=== PATIENT | male | born 1975 | race Caucasian/White ===

== ENCOUNTER 2017-11-29 19:44 | Emergency (ER) | payer SELFPAY ==
[2017-11-29] MEDS ORDERED: Sodium Chloride 0.9% 1,000 ML IV ONE ×2 (20:29)
[2017-11-29] MEDS ORDERED: Sucralfate 1 gm/10 ml Oral Susp UD PO STA (20:30)
--- NOTE | 2017-11-29 20:31 | C.PDOC ---
History Of Present Illness <Jairon Martin - Last Filed: 11/30/17 06:39> <Franca Chauhan - Last Filed: 11/30/17 10:50> 42 y/o male present to the ED complaining of abdominal pain and vomiting that began today. Also reports he stopped drinking today, after drinking alcohol for the past 3 days. Patient was seen at [facility] [place] earlier today with complaints of chest pain and was discharged home. Otherwise patient denies any diarrhea, fever , chills, chest pain, or SOB. (Jairon Martin) History Per: Patient History/Exam Limitations: no limitations Onset/Duration Of Symptoms: Hrs Current Symptoms Are (Timing): Still Present Associated Symptoms: Vomiting <Jairon Martin - Last Filed: 11/30/17 06:39> <GsiselFranca - Last Filed: 11/30/17 10:50> Time Seen by Provider: 11/29/17 20:22 Chief Complaint (Nursing): Abdominal Pain Past Medical History Reviewed: Historical Data, Nursing Documentation, Vital Signs - Medical History PMH: HTN (not sure) Denies: Chronic Kidney Disease Other Surgeries: Colonoscopy Family History: States: Unknown Family Hx - Social History Hx Tobacco Use: No Hx Alcohol Use: Yes Hx Substance Use: No (denies) - Immunization History Hx Tetanus Toxoid Vaccination: No Hx Influenza Vaccination: No Hx Pneumococcal Vaccination: No <Jairon Martin - Last Filed: 11/30/17 06:39> Vital Signs: Last Vital Signs Temp 98.5 F 11/30/17 05:57 Pulse 70 11/30/17 05:57 Resp 16 11/30/17 05:57 BP 135/86 11/30/17 05:57 Pulse Ox 98 11/30/17 06:45 - [facility] Procedures ALCOHOL DETOXIFICATION (04/13/14) Review Of Systems Except As Marked, All Systems Reviewed And Found Negative. Constitutional: Negative for: Fever, Chills Cardiovascular: Negative for: Chest Pain Respiratory: Negative for: Shortness of Breath Gastrointestinal: Positive for: Nausea, Vomiting, Abdominal Pain. Negative for : Diarrhea, Hematemesis <Jairon Martin - Last Filed: 11/30/17 06:39> Physical Exam - Physical Exam Appears: Non-toxic, In Acute Distress (appears to be in mild pain) Skin: Normal Color, Warm, Dry Head: Atraumatic, Normacephalic Eye(s): bilateral: Normal Inspection, PERRL, EOMI Oral Mucosa: Moist Neck: Normal ROM Chest: Symmetrical Cardiovascular: Rhythm Regular, No Murmur Respiratory: Normal Breath Sounds, No Rales, No Rhonchi, No Wheezing Gastrointestinal/Abdominal: Soft, Tenderness (to epigastric area), No Guarding, No Rebound, Other (Vomitus noted to be brown-yellowish color, no blood) Extremity: Bilateral: Atraumatic, Normal Color And Temperature, Normal ROM Neurological/Psych: Oriented x3, Normal Speech <Jairon Martin - Last Filed: 11/30/17 06:39> ED Course And Treatment - Laboratory Results Result Diagrams: 11/29/17 20:41 11/29/17 20:41 O2 Sat by Pulse Oximetry: 98 (RA) Pulse Ox Interpretation: Normal <Jairon Martin - Last Filed: 11/30/17 06:39> - Laboratory Results Result Diagrams: 11/29/17 20:41 11/29/17 20:41 <Franca Chauhan - Last Filed: 11/30/17 10:50> Medical Decision Making <Jairon Martin - Last Filed: 11/30/17 06:39> <Franac Chauhan - Last Filed: 11/30/17 10:50> Medical Decision Making: Impression: Abdominal pain, vomiting, possible withdrawal Initial Plan: --Alcohol serum --Lipase --CMP --CBC --PTT --Prothrombin time --Urinalysis --IV Fluids --4 mg Zofran IV --40 mg Protonix IV --1 gm Carafate PO (Jairon Martin) Disposition Counseled Patient/Family Regarding: Diagnosis - Disposition Disposition Time: 06:40 - POA Present On Arrival: None <Jairon Martin - Last Filed: 11/30/17 06:39> <Franca Chauhan - Last Filed: 11/30/17 10:50> - Disposition Referrals: [facility] [Outside] Disposition: HOME/ ROUTINE Condition: STABLE Prescriptions: Dicyclomine [Bentyl] 10 mg PO QID #30 cap Famotidine [Pepcid] 20 mg PO BID #30 tab Sucralfate [Carafate] 1 gm PO BID #20 tab Instructions: Gastritis (DC), Effects of Alcohol on Your Health, Ulcer and Gastritis Diet Forms: [facility] (Yoruba), Gen Discharge Inst Czech Print Language: LUXEMBOURGISH - Clinical Impression Clinical Impression: Abdominal pain, Alcoholic gastritis - Scribe Statement The provider has reviewed the documentation as recorded by the Scribe (Stacy Rowley) <Jairon Martin - Last Filed: 11/30/17 06:39> <Franca Chauhan - Last Filed: 11/30/17 10:50> - Scribe Statement Provider Attestation: All medical record entries made by the Scribe were at my direction and personally dictated by me. I have reviewed the chart and agree that the record accurately reflects my personal performance of the history, physical exam, medical decision making, and the department course for this patient. I have also personally directed, reviewed, and agree with the discharge instructions and disposition. (Jairon Martin) Addendum <Jairon Martin - Last Filed: 11/30/17 06:39> <Franca Chauhan - Last Filed: 11/30/17 10:50> Addendum: 11/30/17 10:46 Received phone call from Radiologist stating that is is disagree with Vrad reading of patient's abdominal CT and sts patient has pancolitis. Attempted to reach patient, phone number provided [phone] is not a valid number, called assembly person Kaley Gonzalez [phone], no answer, no voice mail was set up for this number. (Franca Chauhan)
[2017-11-29 20:45] LABS: BASO % 0.3 % (0.0-2.0); HEMOGLOBIN 16.2 g/dL (12.0-18.0); LYMPH # 0.8 K/uL (1.0-4.3); LYMPH % 20.1 % (20.0-40.0); MEAN CELL VOLUME 93.4 fL (80.0-94.0); MEAN CORPUSCULAR HEMOGLOBIN 33.2 pg (27.0-31.0); MEAN CORPUSCULAR HGB CONC 35.6 g/dL (33.0-37.0); MEAN PLATELET VOLUME 7.2 fL (7.2-11.7); MONO # 0.4 K/uL (0.0-0.8); MONO % 11.3 % (0.0-10.0); NEUT # 2.6 K/uL (1.8-7.0); NEUT % 68.3 % (50.0-75.0); NRBC % 0.1 % (0.0-2.0); RBC 4.87 Mil/uL (4.40-5.90); RED CELL DISTRIBUTION WIDTH 12.5 % (11.5-14.5); WHITE BLOOD COUNT 3.8 K/uL (4.8-10.8)
[2017-11-29 20:47] LABS: SQUAMOUS EPITHIAL < 1 /hpf (0-5); URINE BILIRUBIN NEGATIVE (NEGATIVE); URINE BLOOD NEGATIVE (NEGATIVE); URINE CLARITY Clear (Clear); URINE COLOR Yellow (YELLOW); URINE GLUCOSE (UA) NORMAL (Normal); URINE LEUKOCYTE ESTERASE NEG Leu/uL (Negative); URINE PROTEIN 2+ mg/dL (NEGATIVE); URINE UROBILINOGEN NORMAL mg/dL (0.2-1.0)
[2017-11-29 20:56] LABS: CALCIUM 8.5 mg/dl (8.6-10.4); GFR AFRICAN-AMERICAN > 60; GFR NON-AFRICAN AMERICAN > 60; LIPASE 65 U/L (23-300)
[2017-11-29 21:13] LABS: ALB/GLOB RATIO 1.1 (1.0-2.1); ALBUMIN 4.4 g/dL (3.5-5.0); ALT/SGPT 98 U/L (21-72); AST/SGOT 91 U/L (17-59); BLOOD UREA NITROGEN 11 mg/dL (9-20)
[2017-11-29 21:19] LABS: INR 1.2; PROTHROMBIN TIME 13.4 SECONDS (9.7-12.2)
[2017-11-29] MEDS ORDERED: Morphine 4 MG/ML VIAL ONE (23:18)
[2017-11-30] MEDS ORDERED: Iohexol 240 (50 ml) ONE (01:47)
[2017-11-30] MEDS ORDERED: Iohexol 240 (50 ml) PO ONE (01:50)
[2017-11-30] MEDS ORDERED: Iodixanol 320 MG/ML 100 ML BOTTLE IV ONE (03:14)
[2017-11-30 05:58] VITALS: BP 135/86; PULSE 70; RESP 16; TEMP 98.5
[2017-11-30 06:43] VITALS: O2SAT 98
--- NOTE | 2017-11-30 10:17 | CT ---
Date of service: 11/30/2017 PROCEDURE: CT Abdomen and Pelvis with contrast HISTORY: abd pain/vomiting COMPARISON: None. TECHNIQUE: Contrast dose: 100 mL Visipaque 320 Radiation dose: Total exam DLP = 902.17 mGy-cm. This CT exam was performed using one or more of the following dose reduction techniques: Automated exposure control, adjustment of the mA and/or kV according to patient size, and/or use of iterative reconstruction technique. FINDINGS: LOWER THORAX: Unremarkable. LIVER: Unremarkable. No gross lesion or ductal dilatation. GALLBLADDER AND BILE DUCTS: Unremarkable. PANCREAS: Unremarkable. No gross lesion or ductal dilatation. SPLEEN: Unremarkable. ADRENALS: Unremarkable. No mass. KIDNEYS AND URETERS: Unremarkable. No hydronephrosis. No solid mass. VASCULATURE: Unremarkable. No aortic aneurysm. BOWEL: Mild quiles colonic mural thickening consistent with nonspecific colitis. There is sigmoid diverticulosis without evidence of diverticulitis and mural thickening mid sigmoid colon may be due, at least in part, to muscular hypertrophy from chronic sigmoid diverticular disease. However, an infectious or inflammatory etiology should be suspected. APPENDIX: Normal appendix. PERITONEUM: Unremarkable. No free fluid. No free air. LYMPH NODES: Unremarkable. No enlarged lymph nodes. BLADDER: Unremarkable. REPRODUCTIVE: Normal prostate BONES: No acute fracture. OTHER FINDINGS: None. IMPRESSION: Mild quiles colonic mural thickening consistent with nonspecific colitis. Consider infectious or inflammatory etiology. Sigmoid diverticulosis. No other abnormality identified. This finding was discussed by telephone with the PA, Franca Chauhan, at 10 a.m. on 11/30/2017. The preliminary findings for this examination were reported by [facility] at 6:33 a.m. on 11/30/2017. There is discordance of this report with the preliminary findings.
--- NOTE | 2017-11-30 11:57 | CARD ---
APPROVED REPORT Date of service: 11/29/2017 EKG Measurement Heart [id number] <Conclusion> Normal sinus rhythm Minimal voltage criteria for LVH, may be normal variant Borderline ECG
== END 2017-11-30 06:57 | disposition home or self-care (01) ==
LOC: C.ER 19:44
DX: K29.20 Alcoholic gastritis without bleeding (principal); R10.9 Unspecified abdominal pain
CPT/HCPCS: 74177; 80053; 81001; 83690; 85025; 85610; 85730; 93005; 96372; 96374; 96375; 99284; C9113; G0480; J0500; J1885; J2270; J2405; J7030; Q9966; Q9967

== ENCOUNTER 2018-08-23 10:09 | Emergency (ER) | payer OTHER ==
[2018-08-23 10:13] VITALS: BMI 31.3
[2018-08-23] MEDS ORDERED: Folic Acid 1 MG, Thiamine 100 MG, Multivitamin (MVI) 10 ML in Dextrose 5% In Water 1,00... IV SCH ×2 (11:15)
[2018-08-23] MEDS ORDERED: Folic Acid 1 MG, Thiamine 100 MG, Multivitamin (MVI) 10 ML in Dextrose 5% In Water 1,00... IV STA (11:16)
--- NOTE | 2018-08-23 11:44 | C.PDOC ---
History Of Present Illness 42 y/o male presents to the ED with complaints of persistent hiccupping for the past 24 hours. He admits to 10 days of binge drinking including tequila, scotch, and other liquor. Patient reports constant hiccupping, now with associated anterior chest pain. He also complains of feeling nauseous and lightheaded. Otherwise patient denies any dizziness, SOB, vomiting, abdominal pain, fevers, or chills. Time Seen by Provider: 08/23/18 10:25 Chief Complaint (Nursing): Substance Abuse History Per: Patient History/Exam Limitations: no limitations Onset/Duration Of Symptoms: Days (x 1) Current Symptoms Are (Timing): Still Present Past Medical History Reviewed: Historical Data, Nursing Documentation, Vital Signs Vital Signs: Last Vital Signs Temp 97.9 F 08/23/18 10:14 Pulse 120 H 08/23/18 10:14 Resp 18 08/23/18 10:14 BP 139/99 H 08/23/18 10:14 Pulse Ox 96 08/23/18 10:14 - Medical History PMH: HTN (patient denies) Denies: Chronic Kidney Disease - [facility] Procedures ALCOHOL DETOXIFICATION (04/13/14) Family History: States: Unknown Family Hx - Social History Hx Tobacco Use: No Hx Alcohol Use: Yes Hx Substance Use: No (denies) - Immunization History Hx Tetanus Toxoid Vaccination: No Hx Influenza Vaccination: No Hx Pneumococcal Vaccination: No Review Of Systems Except As Marked, All Systems Reviewed And Found Negative. Constitutional: Positive for: Other (Hiccups). Negative for: Fever, Chills Cardiovascular: Positive for: Chest Pain, Light Headedness. Negative for: Palpitations Respiratory: Negative for: Shortness of Breath Gastrointestinal: Positive for: Nausea. Negative for: Vomiting, Abdominal Pain, Diarrhea Neurological: Negative for: Weakness, Numbness, Dizziness Physical Exam - Physical Exam Appears: Non-toxic, No Acute Distress, Other (Actively hiccupping) Skin: Warm, Dry, Other (Appears flushed) Head: Atraumatic, Normacephalic Eye(s): bilateral: PERRL, EOMI, Other (Injected conjunctiva) Oral Mucosa: Dry Throat: Normal (airway is patent), No Erythema, No Exudate Neck: Normal ROM Chest: Symmetrical, No Tenderness Cardiovascular: Rhythm Regular, No Murmur Respiratory: Normal Breath Sounds, No Accessory Muscle Use, No Wheezing Gastrointestinal/Abdominal: Soft, No Tenderness, No Distention, Other (Obese abdomen) Extremity: Bilateral: Atraumatic, Normal Color And Temperature, Normal ROM Neurological/Psych: Oriented x3, Normal Speech ED Course And Treatment O2 Sat by Pulse Oximetry: 96 (NC) Pulse Ox Interpretation: Normal Medical Decision Making Medical Decision Making: Impression: Hiccups Plan: Patient given IVF banana bag and 20 mg IV Pepcid Patient observed in the ED for over 4 hours and remains in no acute distress, resting comfortably. VSS. On re-evaluation patient is awake and alert, ambulating with steady gait, no longer has hiccups. Patient is stable for discharge home. Disposition - Disposition Referrals: [facility] [place] [Outside] Disposition: HOME/ ROUTINE Disposition Time: 15:34 Condition: STABLE Instructions: Hiccups Forms: Gen Discharge Inst [place], [facility] (British) - POA Present On Arrival: None - Clinical Impression Clinical Impression: Alcohol abuse, Intractable hiccups - Scribe Statement The provider has reviewed the documentation as recorded by the Aysha Rowley Provider Attestation: All medical record entries made by the Yueibavinash were at my direction and personally dictated by me. I have reviewed the chart and agree that the record accurately reflects my personal performance of the history, physical exam, medical decision making, and the department course for this patient. I have also personally directed, reviewed, and agree with the discharge instructions and disposition.
[2018-08-23 15:55] VITALS: BP 126/82; PULSE 88; RESP 18; TEMP 98.9; O2SAT 97
== END 2018-08-23 15:57 | disposition home or self-care (01) ==
LOC: C.ER 10:09
DX: F10.10 Alcohol abuse, uncomplicated (principal); R06.6 Hiccough
CPT/HCPCS: 96374; 96375; 99284; J2405; J3411; J7070; Q0161